=== PATIENT | female | born 1980 | race Asian ===

== ENCOUNTER 2018-12-04 12:07 | Inpatient (IN) | payer OTHER ==
[~2018-12-04] VITALS: Ht 162.6 cm; Wt 54.4 kg
[2018-12-04 12:07] VITALS: BP 130/71
--- NOTE | 2018-12-04 12:20 | NUR ---
PT BIBA TAKEN TO BED 6
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
--- NOTE | 2018-12-04 12:52 | NUR ---
PT REFUSING BLOOD DRAW.
--- NOTE | 2018-12-04 13:02 | NUR ---
Wandy degroot in ED - 12/04/18 at 1321 by ROSANA RECEIVED REPORT FROM GIO STEVENSON. PT IN BED ASLEEP, RESPONSIVE TO VERBAL AND TACTILE STIMULI, 1:[address], WILL CONTINUE TO MONITOR CLOSELY.
[2018-12-04] MEDS ORDERED: HALOPERIDOL IM 5 MG/ML VIAL IM ONE (13:05)
[2018-12-04] MEDS ORDERED: LORazepam 2 MG/ML VIAL IM ONE (13:05)
--- NOTE | 2018-12-04 13:12 | NUR ---
RECEIVED REPORT FROM GIO STEVENSON. PT IN BED, AWAKE, ALERT, ON 1:1 SITTER. WILL CONTINUE TO MONITOR CLOSELY.
--- NOTE | 2018-12-04 13:20 | NUR ---
PT REFUSING BLOOD DRAW AT THIS TIME.
--- NOTE | 2018-12-04 14:44 | NUR ---
LAB CALLED TO BEDSIDE FOR BLOOD DRAW.
[2018-12-04 14:56] LABS: BASOPHILS % (AUTO) 0.1 % (0.0-2.0); HEMATOCRIT 37.8 % (36-48); HEMOGLOBIN 12.7 g/dL (12.0-16.0); LYMPHOCYTES # (AUTO) 0.8 K/uL (2.5-16.5); LYMPHOCYTES % (AUTO) 10.2 % (20.5-51.1); MEAN CORPUSCULAR HEMOGLOBIN 30 pg (27-31); MEAN CORPUSCULAR HGB CONC 34 g/dL (33-37); MEAN CORPUSCULAR VOLUME 88.6 fL (80-94); MONOCYTES # (AUTO) 0.2 K/uL (0.8-1.0); MONOCYTES % (AUTO) 3.1 % (1.7-9.3); NEUTROPHILS # (AUTO) 6.5 K/uL (1.8-7.7); NEUTROPHILS % (AUTO) 86.6 % (42.2-75.2); PLATELET COUNT (AUTO) 200 K/uL (140-450); RED BLOOD CELL COUNT(AUTO) 4.27 MIL/uL (4.20-5.40); RED CELL DISTRIBUTION WIDTH 13.1 % (11.6-13.7); WHITE BLOOD COUNT (AUTO) 7.5 K/uL (4.8-10.8)
--- NOTE | 2018-12-04 15:10 | NUR ---
COLLECTED URINE AT THIS TIME VIA STRAIGHT CATH. PT TOLEREATED PROCEDURE WELL.
[2018-12-04 15:16] LABS: ASPARTATE AMINOTRANSFERASE 14 U/L (15-37); CARBON DIOXIDE 29.3 mmol/L (21-32); CHLORIDE 107 mmol/L (98-107); CREATININE 0.7 mg/dL (0.6-1.3); GFR ARICAN-AMERICAN 119 mL/min (>90); GLUCOSE 102 mg/dL (74-106); POTASSIUM 4.3 mmol/L (3.5-5.1); SODIUM SERUM 142 mmol/L (136-145); TOTAL BILIRUBIN 0.6 mg/dL (0.0-1.0); UREA NITROGEN, BLOOD 4 mg/dL (7-18)
--- NOTE | 2018-12-04 15:20 | NUR ---
BILATERAL FOOT RESTRAINTS REMOVED. PT TOLERATING REMOVAL AT THIS TIME.
[2018-12-04 15:27] LABS: SALICYLATE < 2.8 mg/dL (2.8-20.0)
--- NOTE | 2018-12-04 15:39 | NUR ---
RESTRAINTS REMOVED FROM UPPER EXTREMITIES. PT IS NO LONGER ON RESTRAINTS. PATIENT ADVISED SHE NEEDED TO BE CALM AND WAIT FOR THE DOCTOR. PT VERBALIZED UNDERSTANDING. PT APPEARS SLEEPY AND COOPERATIVE AT THIS TIME.
[2018-12-04 15:51] LABS: BARBITURATE, URINE NEG. ng/ml (NEG <=200); BENZODIAZEPINE, URINE NEG. ng/mL (NEG <=200); CANNABINOID, URINE NEG. ng/mL (NEG <=50); COCAINE, URINE NEG. ng/mL (NEG <=300); OPIATE, URINE NEG. ng/mL (NEG <=2000); PHENCYCLIDINE SCREEN,URINE NEG. ng/mL (NEG <=25)
[2018-12-04 15:58] LABS: APPEARANCE,URINE CLEAR (CLEAR); BILIRUBIN,URINE NEGATIVE (NEGATIVE); BLOOD, URINE NEGATIVE (NEGATIVE); COLOR,URINE YELLOW (YELLOW); LEUKOCYTE ESTERASE ,URINE NEGATIVE (NEGATIVE); NITRITE, URINE NEGATIVE (NEGATIVE); PH,URINE 7.5 (5.0-9.0); UGLUCOSE NEGATIVE (NEGATIVE)
[2018-12-04 16:00] LABS: ACETAMINOPHEN < 0.5 ug/ml (10-30)
--- NOTE | 2018-12-04 16:42 | NUR ---
MARIA ISABEL ORDERED
--- NOTE | 2018-12-04 16:48 | NUR ---
TELEPSYCH PLACED AT BEDSIDE.
--- NOTE | 2018-12-04 17:47 | NUR ---
DR. VALDES EVALUATING PT
--- NOTE | 2018-12-04 18:05 | NUR ---
SPOKE WITH DR. VALDES (PSYCH) PER , PT NEED ADMIT FOR 5150 HOLD DANGER TO SELF AND NEED FURTHER EVAL. DR. OJEDA MADE AWARE AT THIS TIME.
--- NOTE | 2018-12-04 19:17 | NUR ---
[facility] NOC Shift is aware of patient and will assist with bed placement to contracted [facility] facilties. Going over change of shift at this time and will work on chart when ready.
--- NOTE | 2018-12-04 19:36 | NUR ---
PT SLEEPING COMFORTABLY IN BED. AROUSABLE TO VERBAL STIMULI. SKIN NORMAL, WARM, DRY. BREATHING EVEN, UNLABORED. SI PRECAUTIONS IMPLEMENTED. SITTER AT BEDSIDE FOR SAFETY.
--- NOTE | 2018-12-04 20:09 | NUR ---
Called the following contracted psych facilities regarding bed placement. Currently NO BEDS AVAILABLE tonight. [facility], spoke with Chito. Psych unit is full. [facility], spoke with Tory. Psych unit is at full capacity. [facility], spoke with Magalie. No beds available at this time. [facility], spoke with Avril. They have given out last available bed for tonight. Packet was faxed per request for AM review pending discharges. [facility], spoke with Pat. No beds available but are accepting packets for AM review pending discharges. [facility],, spoke with Brittany. No beds available and can not accept outside packets at this time due to high volume patients in their ED. [facility] will continue to follow up with bed availability
--- NOTE | 2018-12-04 21:24 | NUR ---
PT ASLEEP IN BED, EASY TO AROUSE, RESPONSIVE TO VERBAL AND TACTILE STIMULI, NO C/O PAIN AT THIS TIME. IN STABLE CONDITION. WILL CONTINUE TO MONITOR CLOSELY.
[2018-12-04] MEDS ORDERED: QUET200T PO (21:46)
--- NOTE | 2018-12-04 22:10 | NUR ---
Patient will be admitted to care of DR. SEBLE FIGUEROA. Admited to MEDICAL-SURGICAL UNIT. Will go to [facility] WITH 1:1 SITTER. Belongings list completed. BEDSIDE Report GIVEN to GIO RODGERS.
[2018-12-04 22:20] VITALS: BP 107/61
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
[2018-12-04] MEDS ORDERED: LORazepam 2 MG/ML VIAL IM/IVP PRN (23:40)
[2018-12-04] MEDS ORDERED: ACETAMINOPHEN 325 MG TAB PO PRN (23:40)
[2018-12-05] VITALS: BP 112/56
--- NOTE | 2018-12-05 | NUR ---
PT REMAIN QUIET SLEEPING SITTER AT BED SIDE ALL TIME .DR FIGUEROA WAS CALLED AND ORDER TO FOLLOW
--- NOTE | 2018-12-05 03:00 | NUR ---
PT AMBULATORY VOIDING WELL NOT DISTRESS NOTED RESTING ON BED NOT DISTRESS NOTED SITTER AT BED SIDE ALL TIMES
[2018-12-05 04:00] VITALS: BP 111/63
--- NOTE | 2018-12-05 05:00 | NUR ---
PT REMAIN QUIET NOT ANXIOUS , NOT DISTRESS AT THIS TIME NOTED SITTER AT BEDSIDE ALL TIME
--- NOTE | 2018-12-05 06:27 | NUR ---
PT WILL BE ENDORSSED TO DAY SHIFT NURSE FOR CONTINUE OF CARE , 5150 HOLD , SITTER AT BED SIDE ALL TIME DR TRIPP WAS NO;TIFY
--- NOTE | 2018-12-05 07:25 | NUR ---
REPORT RECEIVED FROM SAFETY SPEC NURSE, PT UP IN BATHROOM, STEADY GAIT, POC REVIEWED, NO IMMEDIATE NEEDS AT THIS TIME, WILL CONTINUE TO [facility].
[2018-12-05 08:00] VITALS: BP 99/61
--- NOTE | 2018-12-05 08:17 | NUR ---
PATIENT HAS BEEN SCREENED AND CATEGORIZED LOW NUTRITION RISK. PATIENT WILL BE SEEN WITHIN 7 DAYS OF ADMISSION. 12/11/[address]
--- NOTE | 2018-12-05 10:20 | NUR ---
DR TRIPP AT BEDSIDE. WILL CONTINUE 5150.
--- NOTE | 2018-12-05 13:10 | NUR ---
ADMITTING HERE TO HAVE HER SIGN PAPERS, PT REFUSES TO SIGN PAPERS UNLESS IT'S A DISCHARGE PAPER.
--- NOTE | 2018-12-05 14:20 | NUR ---
PT WALKING AROUND IN ROOM, PT REQUESTS TO GO HOME, PT STATES HER PSYCHIATRIST AND PSYCHOLOGIST SAID IT WAS OK TO GO HOME, PT WAS EXPLAINED THAT SHE IS STAYING ONE MORE DAY PER DR TRIPP, PT DOES NOT ACKNOWLEDGE.
--- NOTE | 2018-12-05 16:14 | NUR ---
PT REFUSED TO HAVE VITALS TAKEN
--- NOTE | 2018-12-05 19:15 | NUR ---
RECEIVED BEDSIDE REPORT FROM DAY SHIFT NURSENE. NO S/S OF SOB NOTED ON ROOM AIR. SKIN INTACT, WARM AND DRY. IV SITE ON LAC, 20G, INTACT AND PATENT, SL. AMBULATORY, NO ACUTE DISTRESS NOTED. BED IN LOW POSITION, SITTER. WILL CONTINUE TO MONITOR.
--- NOTE | 2018-12-05 19:29 | NUR ---
REPORT GIVEN TO GUEST LAUNDRY ATTENDANT RN
--- NOTE | 2018-12-05 20:00 | NUR ---
PT REFUSED TO HAVE VITALS TAKEN. EXPLAIN BENEFIT AND RISK 3TIME, PT STILL REFUSED.
--- NOTE | 2018-12-05 22:16 | NUR ---
PT SLEEPING IN BED. NO ACUTE DISTRESS NOTED. WILL CONTINUE TO MONITOR.
--- NOTE | 2018-12-05 22:45 | NUR ---
PT REQUESTED TO D/C IV. EXPLAINED BENEFIT AND RISK, PT STILL WANT TO REMOVE IV AND TRYING TO PULL IT OUT. RN REMOVED IV. PT TOLERATED WELL.
[2018-12-05] MEDS ORDERED: QUEtiapine FUMARATE 100 MG TAB PO SCH (23:45)
--- NOTE | 2018-12-06 00:27 | NUR ---
PT REFUSED TO TAKE VITAL SIGN AND SEROQUEL. EXPLAIN BENEFIT AND RISK 3TIMES, PT STILL REFUSED.
--- NOTE | 2018-12-06 01:40 | NUR ---
Still no update on bed placement for [facility] contracted facilities. [facility] will continue to follow up with bed placement and monitor RN/MD notes.
--- NOTE | 2018-12-06 02:45 | NUR ---
PT AWAKE, WALKING IN ROOM. NO ACUTE DISTRESS NOTED. WILL CONTINUE TO MONITOR.
--- NOTE | 2018-12-06 04:50 | NUR ---
PT AWAKE, LYING IN THE BED. NO ACUTE DISTRESS NOTED. BREATHING EVEN AND UNLABORED. BED IN LOW POSITION. WILL CONTINUE TO MONITOR.
--- NOTE | 2018-12-06 06:31 | NUR ---
PT WALKING IN THE ROOM. NO S/S OF SOB NOTED. NO ACUTE DISTRESS NOTED. PT IN STABLE CONDITION.
--- NOTE | 2018-12-06 07:15 | NUR ---
RECEIVED ENDORSEMENT FROM LICENSING AND REGISTRATION DIRECTOR NURSE. PATIENT IS AWAKE. RESPIRATIONS ARE EVEN AND UNLABORED ON ROOM AIR. PATIENT DENIES ANY PAIN. PLAN OF CARE WAS REVIEWED WITH PATIENT, PATIENT VERBALIZED UNDERSTANDING. SAFETY MEASURES IN PLACE, SITTER AT BEDSIDE.
--- NOTE | 2018-12-06 08:01 | NUR ---
PATIENT REFUSED TO HAVE VS TAKEN. NO OTHER NEEDS AT THIS TIME, WILL CONTINUE TO MONITOR.
--- NOTE | 2018-12-06 09:25 | NUR ---
CONTACTED PATIENT'S EX MARY RIBERA AT [phone], MADE HIM AWARE THAT PATIENT HAS DC ORDERS. HE STATED THAT HE AND THE PATIENT ARE AND HAS NOTHING TO DO WITH DISCHARGE. HE ALSO TOLD ME THAT PATIENT LIVES IN A [place] IN [place]. PROVIDED ME WITH CONTACT INFORMATION OF [facility] [phone] OF [address], [place] [address]. CONTACTED THE PROVIDED NUMBER, NO ANSWER. LEFT MESSAGE WITH CONTACT INFO. AWAITING FOR CALL BACK. Addendum: 12/06/18 at 1104 by Anette Trevizo CM CONT: MARY RIBERA ALSO TOLD ME THAT THEIR CHILDREN ARE IN [facility] IN [place], BUT COULD NOT DISCLOSE ANY MORE INFORMATION.
--- NOTE | 2018-12-06 10:01 | NUR ---
PATIENT INSISTENT ON BEING DISCHARGED. EXPLAINED TO PATIENT THAT WE ARE WAITING ON TRANSPORTATION.
--- NOTE | 2018-12-06 10:55 | NUR ---
RECEIVED A CALL FROM DR. FALL, [facility] AND PATIENT'S PROTESTANT FAMILY. PER DR FALL, [facility] CALLED HIM TO CALL ME BECAUSE [facility] HAS LIMITED [facility]. HE STATED THAT THEY CAN PROVIDE THE PATIENT WITH A SAFE PLACE TO STAY AND WILL HAVE SOMEBODY TO PICK HER UP IF SHE IS READY TO BE DISCHARGED. HE ALSO PROVIDED ME OF HIS CELL PHONE NUMBER [phone] TO CONTACT IF WE NEED ANY INFORMATION. CHARGE NURSE MADE AWARE.
--- NOTE | 2018-12-06 11:30 | NUR ---
CALLED DR ALFORD AT [phone]. LEFT A MESSAGE NO ANSWER. THE PATIENT STATES SHE DOES NOT WANT TO GO WITH THE [employer] BECAUSE SHE DOES NOT TRUST THEM. SHE SAID HER UNCLE WILL PICK HER UP. WILL CALL EX TO MAKE SURE SHE HAS AN UNCLE AND VERIFY HIS NAME
--- NOTE | 2018-12-06 12:08 | NUR ---
CALLED PATIENTS EX TO VERIFY HER UNCLE AND HIS NAME, NO ANSWER. LEFT A MESSAGE AT [phone]
--- NOTE | 2018-12-06 12:48 | NUR ---
PATIENT LAYING IN BED QUIETLY. DENIES ANY PAIN. NO OTHER NEEDS AT THIS TIME, WILL CONTINUE TO MONITOR.
--- NOTE | 2018-12-06 13:14 | NUR ---
SPOKE TO DR ALFORD AT [phone], HE SAID THAT HER UNCLE SHE IS STATING WILL PICK HER UP IS [employer], ITS A [employer]. BUT [employer] CANNOT COLON THERAPIST THE PATIENT AT THIS TIME. HE SAID WE CAN HAVE PLIER WORKER CHICO [phone] OR ELDER CARIN [phone] PICK HER UP BUT THE PATIENT REFUSES. SHE SAID SHE WILL CALL HER OTHER UNCLE TO PICK HER UP. PATIENT DOES NOT TRUST ANYONE FROM THE [employer], THE [employer] MEM[employer] STATE SHE IS PARANOID ABOUT THE [employer].
--- NOTE | 2018-12-06 14:08 | NUR ---
PATIENTS [facility] FRIEND GINA MCDANIEL PICKED UP PATIENT. PATIENT AMBULATED OFF UNIT WITH STEADY GAIT. ID BAND WAS REMOVED. ALL BELONGINGS LEFT WITH PATIENT. DISCHARGE INSTRUCTIONS WERE GIVEN. PATIENT TO BE DISCHARGE BACK TO WHERE SHE WAS LIVING AT [facility] AT [facility]. PATIENT IS STABLE AT THIS TIME.
--- NOTE | 2018-12-06 15:17 | NUR ---
ATTEMPTED TO CALL PATIENTS [facility] FRIEND. LEFT A MESSAGE TO CALL BACK FOR PATIENTS APPOINTMENT ON DEC 12, 2018 AT 1330 WITH MD ALLAN GAMBLE AT [address] [facility] [address]. Addendum: 12/06/18 at 2762 by Sinai Marina RN RECEIVED CALL BACK AND INFORMATION WAS GIVEN
== END 2018-12-06 14:10 | disposition home or self-care (01) | DRG 751 ==
LOC: MED 12:07 → MTU 21:50
PROVIDERS: ADMIT Internal Medicine Pulmonary Disease; ATTEND Internal Medicine Pulmonary Disease
DX: F29 Unspecified psychosis not due to a substance or known physiological condition (principal); R45.851 Suicidal ideations; F31.9 Bipolar disorder, unspecified
CPT/HCPCS: 36415; 80053; 80305; 81003; 81025; 85025; 87081; 93005; 96372; 99285; G0480; G0482; J1630; J2060